=== PATIENT | female | born 1970 | race Caucasian/White ===

== ENCOUNTER 2018-12-16 21:43 | Emergency (ER) | payer BC ==
[2018-12-16] MEDS ORDERED: ASPIRIN 81 MG TABLET, CHEWABLE PO ONE (22:01)
--- NOTE | 2018-12-16 22:53 | RADIOLOGY REPORT (SQ) ---
EXAM DESCRIPTION: XR CHEST 2 VIEWS COMPLETED DATE/TME: 12/16/2018 00:00 CLINICAL HISTORY: 48 years Female cp COMPARISON: None. FINDINGS: The cardiomediastinal silhouette appears unremarkable. No consolidating infiltrates or pleural effusions. No pneumothorax. IMPRESSION: No acute abnormality is identified.
--- NOTE | 2018-12-16 22:55 | ER Document Report ---
ED Medical Screen (RME) - General Chief Complaint: Chest Pain Stated Complaint: CHEST,BACK,NECK,JOINT PAIN,NAUSEA TRAVEL OUTSIDE OF THE [place] IN LAST 30 DAYS: No - living with relatives traveled to [place], [place], [place] in last 30 - HPI Notes: 12/16/18 23:10 48 year old female to the ED with C/o chest pain that began today about noon and has progressively gotten worse. States that she has pain that radiate into bilateral jaw regions and bilateral shoulders. States that she has at times felt nauseated and SOB. denies exertional SOB. States that she takes progesterone. She is here on vacation. She drove from [place], [place]. States that she has no leg swelling. States last night she had some "heart fluttering". 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 Denies any orestes heart racing. States she initially thought this was indigestion. States she took anti relux medicine but it did not help. States that when she started to have the jaw pain, she got more concerned. Denies any fevers, chills, vomiting, diaphoresis. She is a non smoker. She has never had a heart attack. She does not have DM, HTN, HLD. There is family history of heart disease -- her father had a heart attack at 61. I performed a medical screening exam on this patient and determined she needs further workup and management by mainside provider. I have ordered labs, EKG, CXR. Encouraged patient to notify staff if her pain worsened. Physical Exam - Vital signs Vitals: Temp Pulse Resp BP Pulse Ox 98.1 F 90 16 147/90 H 98 12/16/18 22:25 12/16/18 22:25 12/16/18 22:25 12/16/18 22:25 12/16/18 22:25 - General General appearance: Anxious In distress: None - Respiratory Respiratory status: No respiratory distress Chest status: Nontender Breath sounds: Normal Chest palpation: Normal - Cardiovascular Rhythm: Regular Heart sounds: Normal auscultation Murmur: No Notes: no leg edema Course - Vital Signs Vital signs: Temp Pulse Resp BP Pulse Ox 98.1 F 90 16 147/90 H 98 12/16/18 22:25 12/16/18 22:25 12/16/18 22:25 12/16/18 22:25 12/16/18 22:25
[2018-12-16] MEDS ORDERED: FAMOTIDINE 20 MG TABLET PO ONE (23:34)
--- NOTE | 2018-12-16 23:36 | ER Document Report ---
ED Cardiac - General Chief Complaint: Chest Pain Stated Complaint: CHEST,BACK,NECK,JOINT PAIN,NAUSEA Time Seen by Provider: 12/16/18 22:55 Notes: Patient is a 48-year-old female that comes to emergency department for chief complaint of a pain in her chest that radiates up towards her shoulders and jaw on the both sides, she started noticing this at noon today, it is intermittently worse. She states when she walks around she actually feels better and this is the only thing that gets it to resolve. She states she started feeling palpitations last night after drinking 2 [place]aya [place]'s. She denies vomiting but did feel nausea earlier, thought it was heartburn, took 2 Tums and Aleve without significant change. She is visiting here from [place] on vacation. She is medicated on iron and progesterone for history of anemia, she has a history of PSVT but is not on metoprolol (only takes magnesium), she does have positive family history of HI with her father, she had a negative stress test 3 years ago. She denies smoking, lower extremity swelling, personal family history of PE/DVT, recent surgery. TRAVEL OUTSIDE OF THE [place] IN LAST 30 DAYS: No - living with relatives traveled to [place], [place], [place] in last 30 - Related Data Allergies/Adverse Reactions: No Known Allergies Allergy (Unverified 12/17/18 00:18) Past Medical History - General Information source: Patient - Social History Smoking Status: Never Smoker Frequency of alcohol use: None Drug Abuse: None Lives with: Family Family History: CAD - Past Medical History Cardiac Medical History: Reports: Other - PSVT Review of Systems - Review of Systems Constitutional: No symptoms reported EENT: No symptoms reported Cardiovascular: See HPI Respiratory: No symptoms reported Gastrointestinal: See HPI Genitourinary: No symptoms reported Female Genitourinary: No symptoms reported Musculoskeletal: No symptoms reported Skin: No symptoms reported Hematologic/Lymphatic: No symptoms reported Neurological/Psychological: No symptoms reported Physical Exam - Vital signs Vitals: Temp Pulse Resp BP Pulse Ox 98.1 F 90 16 147/90 H 98 12/16/18 22:25 12/16/18 22:25 12/16/18 22:25 12/16/18 22:25 12/16/18 22:25 - Notes Notes: GENERAL: Alert, interacts well. No acute distress. HEAD: Normocephalic, atraumatic. EYES: Pupils equal, round, and reactive to light. Extraocular movements intact. ENT: Oral mucosa moist, tongue midline. Oropharynx unremarkable. Airway patent. LUNGS: Clear to auscultation bilaterally, no wheezes, rales, or rhonchi. No respiratory distress. HEART: Regular rate and rhythm. No murmur ABDOMEN: Soft, non-tender. Non-distended. Bowel sounds present in all 4 quadrants. GENITOURINARY: Deferred EXTREMITIES: Moves all 4 extremities spontaneously. No edema, normal radial and dorsalis pedis pulses bilaterally. No cyanosis. BACK: no cervical, thoracic, lumbar midline tenderness. No saddle anesthesia, normal distal neurovascular exam. Moves all extremities in full range of motion. NEUROLOGICAL: Alert and oriented x3. Normal speech. Cranial nerves II through XII grossly intact. PSYCH: Slightly anxious but otherwise well-appearing SKIN: Warm, dry, normal turgor. No rashes or lesions noted. Course - Re-evaluation Re-evalutation: EKG is unremarkable. Chest x-ray is unremarkable. CBC, chemistry, lipase, troponin, and TSH are all unremarkable. Patient has had over 8 hours of symptoms. Her heart score is 2. Very low suspicion of acute HI based on her work-up and presentation. She has no lower extremity swelling, tachycardia, or shortness of breath. I am not suspecting a pulmonary embolism. Patient was gi yair Carafate, Pepcid, Zofran, after this her symptoms significantly improved. Based on her history and symptoms along with improvement I do suspect upper GI source. Patient will be discharged with strict return precautions and follow- up. Patient has good follow-up reportedly. Stable time of discharge. - Vital Signs Vital signs: Temp Pulse Resp BP Pulse Ox 98.1 F 83 16 132/78 H 99 12/17/18 02:00 12/17/18 02:00 12/17/18 02:00 12/17/18 02:00 12/17/18 02:00 - Laboratory Result Diagrams: 12/16/18 23:25 12/16/18 23:25 Laboratory results interpreted by me: 12/16/18 12/16/18 23:25 23:25 Seg Neutrophils % 80.8 H Glucose 111 H - EKG Interpretation by Me Additional EKG results interpreted by me: EKG sinus rhythm at a rate of 97, QTC of 452, DC interval 160. No T wave inversions or ST segment changes in consecutive leads. Normal axis. Discharge - Discharge Clinical Impression: Chest pain Qualifiers: Chest pain type: unspecified Qualified Code(s): R07.9 - Chest pain, unspecified Condition: Stable Disposition: HOME, SELF-CARE Additional Instructions: Your work-up is normal. Your symptoms, evaluation, and work-up are most suggestive of a gastrointestinal source of your symptoms. I recommend the Carafate and the famotidine as prescribed for the next several days. Initially I recommend avoiding NSAIDs, caffeine, spicy food, alcohol, smoking. Start with bland food. Follow-up with primary care for additional evaluation management including possible additional testing. Return if you worsen including vomiting, vomiting blood, severe worsening pain, difficulty breathing, fever/chills, or any other concerning symptoms. Prescriptions: Famotidine [Pepcid 20 mg Tablet] 20 mg PO BID #14 tablet Sucralfate [Carafate 1 gm Tablet] 1 gm PO QID #20 tablet
[2018-12-16 23:38] LABS: ABSOLUTE BASOPHILS # (AUTO) 0.1 10^3/uL (0.0-0.2); ABSOLUTE LYMPHOCYTES (AUTO) 1.2 10^3/uL (0.5-4.7); ABSOLUTE MONOCYTES (AUTO) 0.5 10^3/uL (0.1-1.4); ABSOLUTE NEUT (AUTO) 7.2 10^3/uL (1.7-8.2); BASOPHILS % (AUTO) 0.7 % (0-2); EOSINOPHILS % (AUTO) 0.2 % (0-6); HEMATOCRIT 42.2 % (36.0-47.0); HEMOGLOBIN 14.2 g/dL (12.0-15.5); MEAN CORPUSCULAR HEMOGLOBIN 27.8 pg (27.0-33.4); MEAN CORPUSCULAR HGB CONC 33.6 g/dL (32.0-36.0); MEAN CORPUSCULAR VOLUME 83 fl (80-97); MONOCYTES % (AUTO) 5.3 % (3-13); PLATELET COUNT 329 10^3/uL (150-450); RED BLOOD COUNT 5.09 10^6/uL (3.72-5.28); RED CELL DISTRIBUTION WIDTH 13.5 % (11.5-14.0); SEGMENTED NEUTROPHILS % (AUTO) 80.8 % (42-78); TOTAL CELLS COUNTED % (AUTO) 100 %; WHITE BLOOD COUNT 8.9 10^3/uL (4.0-10.5)
[2018-12-16 23:55] LABS: ALANINE AMINOTRANSFERASE 23 U/L (9-52); ALBUMIN 4.2 g/dL (3.5-5.0); ALKALINE PHOSPHATASE 103 U/L (38-126); ANION GAP 7 (5-19); ASPARTATE AMINO TRANSFERASE 25 U/L (14-36); BILIRUBIN,DIRECT 0.2 mg/dL (0.0-0.4); BILIRUBIN,TOTAL 0.4 mg/dL (0.2-1.3); BLOOD UREA NITROGEN 9 mg/dL (7-20); CALCIUM 10.1 mg/dL (8.4-10.2); CARBON DIOXIDE 25 mmol/L (22-30); CHLORIDE 106 mmol/L (98-107); CREATINE KINASE 72 U/L (30-135); GLUCOSE 111 mg/dL (75-110); POTASSIUM 4.7 mmol/L (3.6-5.0); SODIUM 138.2 mmol/L (137-145); TOTAL PROTEIN 6.8 g/dL (6.3-8.2)
[2018-12-17 00:07] LABS: CREATINE KINASE MB 0.68 ng/mL (<4.55)
[2018-12-17 00:10] LABS: TROPONIN I < 0.012 ng/mL
[2018-12-17] MEDS ORDERED: SUCRALFATE 1 GM TABLET PO ONE (00:20)
[2018-12-17] MEDS ORDERED: ONDANSETRON 4 MG TAB.RAPDIS PO ONE (00:20)
[2018-12-17 02:13] VITALS: BP 132/78
--- NOTE | 2018-12-17 22:34 | EKG REPORT ---
SEVERITY:- NORMAL ECG - SINUS RHYTHM : Confirmed by: Nellie Millan MD 17-Dec-2018 22:34:09
== END 2018-12-17 02:12 | disposition home or self-care (01) ==
LOC: ER 21:43
DX: R07.9 Chest pain, unspecified (principal); R11.0 Nausea; D64.9 Anemia, unspecified; Z79.899 Other long term (current) drug therapy; Z82.49 Family history of ischemic heart disease and other diseases of the circulatory system
CPT/HCPCS: 93005; 99284; 36415; 82553; 82550; 84443; 85025; 80053; 84484; 71046; 93010; S0119